=== PATIENT | female | born 1990 | race African-American/Black ===

== ENCOUNTER 2021-04-27 15:06 | Emergency (ER) | payer BC, OTHER ==
[~2021-04-27] VITALS: Ht 159 cm; Wt 78.5 kg
[2021-04-27 15:40] LABS: URINE BILIRUBIN NEGATIVE (Negative); URINE BLOOD 1+ (Negative); URINE CLARITY CLEAR; URINE COLOR YELLOW; URINE GLUCOSE-RANDOM* NEGATIVE (Negative); URINE KETONES NEGATIVE (Negative); URINE LEUKOCYTES-REFLEX NEGATIVE (Negative); URINE NITRITE-REFLEX NEGATIVE (Negative); URINE PROTEIN (DIPSTICK) NEGATIVE (Negative); URINE SPECIFIC GRAVITY 1.015 (1.005-1.035); URINE UROBILINOGEN 0.2 E.U./dl (0.2-1.0)
[2021-04-27 15:51] LABS: HEMATOCRIT 39.7 % (37.0-47.0); HEMOGLOBIN 13.3 gm/dL (12.0-15.0); MCH 29.8 pg (26.0-34.0); MCHC 33.7 g/dL (28.0-37.0); MCV 88.7 fL (80.0-100.0); RBC 4.47 mil/uL (4.20-5.00); RDW 13.2 % (10.5-14.5); WBC 4.6 thou/uL (4.0-11.0)
[2021-04-27 15:52] LABS: BACTERIA-REFLEX None Seen /HPF (None Seen); CASTS None Seen /LPF (None Seen); SQUAMOUS 0-3 Few /LPF (0-3); URINE RBC 1-2 Rare /HPF (NONE SEEN); URINE WBC-REFLEX None Seen /HPF (0-5)
[2021-04-27 15:53] LABS: CRYSTALS None Seen /LPF (None Seen)
[2021-04-27 16:01] LABS: CALCIUM 9.1 mg/dL (8.5-10.1); CREATININE 0.8 mg/dL (0.6-1.0); POTASSIUM 3.4 mmol/L (3.5-5.1)
[2021-04-27 16:08] LABS: ALBUMIN 4.3 g/dL (3.4-5.0); TOTAL BILIRUBIN 0.4 mg/dL (0.2-1.0); TOTAL PROTEIN 8.4 g/dL (6.4-8.2)
[2021-04-27] MEDS ORDERED: BENTYL 10 MG CA10 MG PO (19:32)
[2021-04-27] MEDS ORDERED: CARAFATE1 GM PO (20:15)
[2021-04-27 20:46] VITALS: BP 112/74
== END 2021-04-27 20:30 | disposition home or self-care (01) ==
LOC: ER 15:06
PROVIDERS: Nurse Practitioner Family
DX: R10.84 Generalized abdominal pain (principal); Z98.890 Other specified postprocedural states

== ENCOUNTER 2021-07-29 09:48 | Emergency (ER) | payer BC, OTHER ==
[~2021-07-29] VITALS: Ht 152.4 cm; Wt 54.4 kg
[~2021-07-29 09:48] MED LIST: BENTYL 10 MG CA10 MG PO; CARAFATE1 GM PO
[2021-07-29] MEDS ORDERED: CEPHALEXIN500 MG PO (11:21)
[2021-07-29 11:23] VITALS: BP 119/68
== END 2021-07-29 11:28 | disposition home or self-care (01) ==
LOC: ER 09:48
DX: L60.0 Ingrowing nail (principal); K21.9 Gastro-esophageal reflux disease without esophagitis; Z98.890 Other specified postprocedural states; Z79.899 Other long term (current) drug therapy